=== PATIENT | male | born 1975 | race Caucasian/White ===

== ENCOUNTER → 2017-03-14 | Outpatient (REF) | payer OTHER | LOC: M LABNEURO 17:01 | PROVIDERS: ATTEND Psychiatry & Neurology Neurology | DX: E55.9 Vitamin D deficiency, unspecified (principal) ==

== ENCOUNTER 2017-06-02 16:13 | Emergency (ER) | payer OTHER ==
[~2017-06-02] VITALS: Ht 180.3 cm; Wt 84.1 kg
[2017-06-02] MEDS ORDERED: TYLETAB14 PO (16:31)
[2017-06-02] MEDS ORDERED: LISI10TA4 PO (16:31)
[2017-06-02] MEDS ORDERED: DULO1CAP2 PO (16:31)
[2017-06-02] MEDS ORDERED: PROTPAK PO (16:31)
[2017-06-02] MEDS ORDERED: VITA500046 PO (16:31)
[2017-06-02 18:04] VITALS: BP 154/92
== END 2017-06-02 18:10 | disposition home or self-care (01) ==
LOC: EDBD 16:13 → M ED 17:49
DX: F41.9 Anxiety disorder, unspecified (principal); F10.10 Alcohol abuse, uncomplicated; I10 Essential (primary) hypertension; K21.9 Gastro-esophageal reflux disease without esophagitis; F17.200 Nicotine dependence, unspecified, uncomplicated; Z79.899 Other long term (current) drug therapy